=== PATIENT | male | born 1950 | race Caucasian/White ===

== ENCOUNTER 2016-10-24 12:18 | Day surgery (SDC) | payer BC ==
[2016-10-16 15:51] LABS: BASOPHILS 0.5 %; BASOPHILS ABSOLUTE 0.04 10/3/uL (0.0-0.16); EOSINOPHILS 2.7 %; EOSINOPHILS ABSOLUTE 0.21 10/3/uL (0.0-0.53); HEMATOCRIT 45.5 % (40.0-51.0); HEMOGLOBIN 16.1 g/dL (13.6-17.8); IMMATURE GRANULOCYTES 0.4 %; IMMATURE GRANULOCYTES ABSOLUTE 0.03 10/3/uL (0.0-0.11); LYMPHOCYTES 42.4 %; LYMPHOCYTES ABSOLUTE 3.33 10/3/uL (0.67-4.30); MEAN CORPUS HGB CONC 35.4 g/dL (32.0-36.0); MEAN CORPUSCULAR HEMOGLOB 33.3 pg (26.0-34.0); MEAN PLATELET VOLUME 8.6 fL (9.2-13.0); MONOCYTES 9.7 %; MONOCYTES ABSOLUTE 0.76 10/3/uL (0.21-1.20); NEUTROPHILS 44.3 %; NEUTROPHILS ABSOLUTE 3.48 10/3/uL (2.02-8.40); PLATELET COUNT 333 10/3/uL (150-400); RBC DISTRIBUTION WIDTH 12.8 % (12.0-16.0); RED CELL COUNT 4.84 10/6/uL (4.7-6.1); WHITE BLOOD CELLS 7.9 10/3/uL (4.5-10.5)
[2016-10-16 15:52] LABS: MANUAL DIFF NO %
[2016-10-16 15:54] LABS: INTERNATIONAL NORMAL RATI 1.1 UNITS (-); PARTIAL THROMBO TIME 35.3 SEC (22.5-37.2); PROTIME (NOT ORD) 13.8 SEC (12.0-14.5)
[2016-10-16 15:57] LABS: BUN (BLOOD UREA NITROGEN) 12 MG/DL (6-23); CALCIUM, SERUM 9.6 MG/DL (8.5-10.4); CHLORIDE, SERUM 103 MMOL/L (96-112); CO2 (CARBON DIOXIDE) 30 MMOL/L (24-34); GFR AFRICAN AMERICAN 81 ML/MIN (>=60); GFR NON AFRICAN AMERICAN 70 ML/MIN (>=60); GLUCOSE, SERUM 105 MG/DL (60-99); POTASSIUM, SERUM 3.6 MMOL/L (3.5-5.3); SODIUM, SERUM 139 MMOL/L (135-148)
--- NOTE | ~2016-10-24 | OP ---
Record Of Operation [facility] [address] [place]. [address] NAME: TONEY MARQUEZ : 50 STATUS : REG [facility] PAT#: [id number] AGE: 65 ADM/REG DATE : 10/24/16 MR#: [id number] REPORT SERV DATE: 10/24/16 DICTATED BY: VERÓNICA PANCHAL DATE: 10/24/16 REPORT STATUS : Draft TRANSCRIBED BY: MODL DATE: 10/24/16 DATE OF PROCEDURE: 10/24/2016 PREOPERATIVE DIAGNOSIS: Recurrent urothelial carcinoma of the bladder. POSTOPERATIVE DIAGNOSIS: Recurrent urothelial carcinoma of the bladder. PROCEDURE PERFORMED: Cystoscopy, bilateral retrograde pyelogram, transurethral resection of bladder tumor, bladder biopsy, fulguration. SURGEONS: Verónica Panchal M.D. ANESTHESIA: General. ESTIMATED BLOOD LOSS: 20 mL. INDICATIONS: This is a 65-year-old, white male with a history of recurrent urothelial carcinoma. He previously had a history of multifocal low-grade, low-stage TCC of the bladder. Recent surveillance cystoscopy has demonstrated multiple bladder tumors including one necrotic tumor. We are planning endoscopic resection and retrograde studies. Risks of infection, bleeding, failure, need for further surgery, etc. were reviewed. PROCEDURE IN DETAIL: The patient was taken to the operating room and underwent a general anesthetic. He was placed in a lithotomy position on the table, and his external genitalia were sterilely prepped and draped. The 22-[place] cystoscope sheath with 30-degree lens was inserted under direct vision per urethra with the aid of the video monitor. The anterior urethra looked normal. The prostatic urethra measured about 2.5 cm and had [id number] lateral lobe occlusion and a mildly elevated bladder neck. The bladder was thoroughly inspected. There was a lot of necrotic debris on the bladder floor limiting visibility. Single orifices were seen bilaterally and both were uninvolved with any tumors. There was a tumor at the prostatovesical junction at about 11 or 12 o'clock that was relatively small. There was a large partially necrotic tumor arising from a small stalk on the left bladder sidewall. There was an another papillary tumor again arising from a relatively thin stalk on the anterior wall of the bladder to the left of midline. There were some unusual looking mucosal lesions, which were ovoid in the anterior bladder wall. No other particularly suspicious areas were noted. Bilateral retrograde pyelograms were performed, both showed normal-caliber ureters, normal-looking collecting systems bilaterally. Both drained promptly on drainage films. The left orifice was more capacious than the right. The entry of the right orifice required the use of the guidewire. The urethra was then dilated to 30- [place] using sounds without difficulty and the 27-[place]ander resectoscope sheath with Vandemere obturator was advanced into the bladder. The bladder and prostatic landmarks were re- identified, and a hot loop was used to resect all of the visible tumor beginning with the tumors in the anterior wall of the bladder. The roller ball was then used to thoroughly fulgurate the resection beds. The two unusual ovoid-looking areas in the anterior bladder wall were then biopsied using cold cup biopsy forceps multiple times and thoroughly cauterized. The [employer] evacuator was used to remove all tumor chips from the bladder. A Record Of Operation [address] [place]. [address] NAME: TONEY MARQUEZ : 50 STATUS : REG [facility] PAT#: [id number] AGE: 65 ADM/REG DATE : 10/24/16 MR#: [id number] REPORT SERV DATE: 10/24/16 DICTATED BY: VERÓNICA PANCHAL DATE: 10/24/16 REPORT STATUS : Draft TRANSCRIBED BY: YA DATE: 10/24/16 diligent reinspection of the bladder revealed no worrisome or significant remaining lesions, and no bladder perforations. There was no significant bleeding noted. I should mention that the bladder itself was moderately trabeculated. Following this, the endoscopic apparatus was removed, and an 18-[place]ander coude catheter was placed to gravity drainage. The patient tolerated the procedure well and was taken to recovery in stable condition. FRIEDA/YA Verónica Panchal M.D. / [id number] CC: Asia Tracy M.D.
[~2016-10-24 12:18] MED LIST: ALEVE220 MG PO; FISH-EPA1000 MG PO; INDAPAMIDE1.25 MG PO; MAX25 PO; ZOVIRAX400 MG PO
== END 2016-10-24 20:10 | disposition home or self-care (01) ==
LOC: SDC 12:18
PROVIDERS: Internal Medicine Hematology & Oncology; Urology
PROC: 0TBB8ZX Excision of Bladder, Via Natural or Artificial Opening Endoscopic, Diagnostic (ICD-10-PCS; principal; 2016-10-24 13:45)
PROC: BT14YZZ Fluoroscopy of Kidneys, Ureters and Bladder using Other Contrast (ICD-10-PCS; 2016-10-24 13:45)
DX: C67.9 Malignant neoplasm of bladder, unspecified (principal); F17.210 Nicotine dependence, cigarettes, uncomplicated; K58.9 Irritable bowel syndrome, unspecified; I10 Essential (primary) hypertension; Z88.5 Allergy status to narcotic agent; Z79.899 Other long term (current) drug therapy; Z88.8 Allergy status to other drugs, medicaments and biological substances; Z98.890 Other specified postprocedural states
CPT/HCPCS: 71020; 74420; 80048; 85025; 85610; 85730; 88305; 88307; 93005; A9270-GY; C1758; J2250; J2405; J2710; J3010; J9280; Q9967